=== PATIENT | male | born 1960 | race Caucasian/White ===

== ENCOUNTER 2022-10-17 20:21 | Emergency (ER) | payer BC ==
[~2022-10-17] VITALS: Ht 167.6 cm; Wt 73.0 kg
[2022-10-17] MEDS ORDERED: ACETAMINOPHEN 325MG TABLET PO ONE (22:15)
[2022-10-17] MEDS ORDERED: LIDOCAINE 5% PATCH TOP SCH (22:15)
[2022-10-17 22:19] VITALS: BP 131/79
[2022-10-17 22:48] LABS: BASOPHILS % 0.7 % (0.0-2.0); EOSINOPHILS % 3.7 % (0.0-5.0); HEMOGLOBIN. 12.7 g/dL (14.0-18.0); LYMPHOCYTES % 39.7 % (20.0-50.0); MEAN CORPUSCULAR VOLUME 87.8 fL (80.0-94.0); MEAN PLATELET VOLUME 8.3 fl (7.4-10.4); MONOCYTES % 8.7 % (2.0-8.0); NEUTROPHILS % 47.2 % (40.0-76.0); PLATELET 273 x1000/uL (130-400); RED BLOOD CELL COUNT 4.22 mill/uL (4.7-6.1); RED CELL DISTRIBUTION WIDTH 13.6 % (11.6-14.6)
[2022-10-17 22:57] LABS: CHLORIDE 101 mEq/L (98-107)
[2022-10-17 23:30] LABS: CLARITY URINE CLEAR (CLEAR); COLOR URINE YELLOW (YELLOW); KETONES URINE NEGATIVE (NEGATIVE); LEUKOCYTE ESTERASE URINE NEGATIVE (NEGATIVE); NITRITE URINE NEGATIVE (NEGATIVE); OCCULT BLOOD URINE NEGATIVE (NEGATIVE); PH URINE 5.5 (4.5-8.0); PROTEIN URINE 2+ (NEGATIVE); SPECIFIC GRAVITY URINE 1.008 (1.005-1.030); UROBILINOGEN URINE 0.2 E.U./dL (0.2-1.0)
[2022-10-18] MEDS ORDERED: LIDO700A30 TP (02:30)
[2022-10-18] MEDS ORDERED: IBUP-2028 MT (02:30)
== END 2022-10-18 03:31 | disposition home or self-care (01) ==
LOC: ER 20:21
DX: R10.30 Lower abdominal pain, unspecified (principal); I10 Essential (primary) hypertension; E11.9 Type 2 diabetes mellitus without complications; Z98.890 Other specified postprocedural states
CPT/HCPCS: 36415; 74176; 80053; 81003; 83880; 84484; 85025; 99284